=== PATIENT | male | born 1965 | race Caucasian/White ===

== ENCOUNTER 2021-05-24 12:02 | Emergency (ER) | payer OTHER ==
[2021-05-24 12:41] VITALS: BP 127/78; PULSE 78; TEMP 98.4; BMI 25.8
[2021-05-24] MEDS ORDERED: ACETAMINOPHEN 500 MG TABLET (FP) PO ONE (13:12)
[2021-05-24] MEDS ORDERED: ACETAMINOPHEN 500 MG TABLET (FP) ONE (13:40)
[2021-05-24 13:55] LABS: HEMATOCRIT 42.5 % (35.4-49); MCH 31.4 pg (25.7-33.7); MCHC 35.2 g/dl (32.0-35.9); MEAN CELL VOLUME 89.2 fl (80-96); MEAN PLT VOLUME 7.2 fl (7.5-11.1); PLATELET COUNT 169 10^3/uL (134-434); RBC 4.77 M/mm3 (4.00-5.60); RDW 12.8 % (11.9-15.9)
[2021-05-24 14:15] LABS: CALCIUM 8.5 mg/dL (8.5-10.1)
[2021-05-24 14:16] LABS: ALBUMIN 3.9 g/dl (3.4-5.0)
[2021-05-24 14:19] LABS: CREATININE 1.2 mg/dL (0.55-1.3)
[2021-05-24 14:21] LABS: TOT PROT 8.5 g/dl (6.4-8.2)
[2021-05-24] MEDS ORDERED: CASIRIVIMAB/IMDEVIMAB 10 ML in SODIUM CHLORIDE 100 ML IVPB ONE (15:28)
== END 2021-05-24 14:00 | disposition home or self-care (01) ==
LOC: JCOVINFU 12:02
DX: U07.1 COVID-19 (principal)
CPT/HCPCS: 36415; 71046-TC-FY; 80053; 85027; 99284-25; M0240; Q0240